=== PATIENT | female | born 1985 | race Caucasian/White ===

== ENCOUNTER → 2020-02-01 | Outpatient (CLI) | payer BC ==
[2020-02-01 19:51] LABS: Free Thyroxine 1.15 ng/dL (0.70-1.60); Thyroid Stimulating Hormone 1.61 uIU/mL (0.360-4.800); Triiodothyronine, Free 3.23 pg/mL (2.18-3.98)
== END | disposition home or self-care (01) ==
LOC: LAB SHORT 18:02 → LAB 18:02
PROVIDERS: Hospitalist
DX: E03.9 Hypothyroidism, unspecified (principal); N92.6 Irregular menstruation, unspecified
CPT/HCPCS: 82670; 84144; 84439; 84443; 84481

== ENCOUNTER → 2021-10-15 | Outpatient (CLI) | payer BC ==
[2021-10-16 15:11] LABS: HPV 16 Negative (Negative); HPV 18 Negative (Negative); HPV OTHER HR TYPES Negative (Negative)
== END | disposition home or self-care (01) ==
LOC: LAB 18:03 → LAB SHORT 18:03
PROVIDERS: Internal Medicine
DX: Z01.419 Encounter for gynecological examination (general) (routine) without abnormal findings (principal)
CPT/HCPCS: 87624; G0123

== ENCOUNTER 2024-03-20 21:37 | Emergency (ER) | payer BC ==
[~2024-03-20] VITALS: Ht 160 cm; Wt 74.8 kg
[2024-03-20] MEDS ORDERED: Ipratropium Bromide INH 0.02% 0.5 mg/2.5ML Vial INH SCH (21:55)
[2024-03-20] MEDS ORDERED: Albuterol 2.5 MG/3 ML VIAL INH SCH (21:55)
[2024-03-20] MEDS ORDERED: ALBU2.5V5 INH (22:02)
[2024-03-20] MEDS ORDERED: ALBU90OI INH ×2 (22:02→23:44)
[2024-03-20] MEDS ORDERED: LORA10ER PO (22:03)
[2024-03-20] MEDS ORDERED: MAGNESIUM OXID500 MG PO (22:04)
[2024-03-20] MEDS ORDERED: MULVITA PO (22:04)
[2024-03-20] MEDS ORDERED: RX Prepack Albuterol 1 PREPACK/6.7 GM INH UD ONE (22:50)
[2024-03-20] MEDS ORDERED: PredniSONE 20 MG Tab PO ONE (22:50)
[2024-03-20] MEDS ORDERED: Prednisone50 MG PO (23:44)
[2024-03-20 23:45] VITALS: BP 115/83
== END 2024-03-21 | disposition home or self-care (01) ==
LOC: ER 21:37
DX: J45.909 Unspecified asthma, uncomplicated (principal); Z79.52 Long term (current) use of systemic steroids; Z79.899 Other long term (current) drug therapy
CPT/HCPCS: 94644; 94664; 99284-25; A9270; J7512